=== PATIENT | female | born 1970 | race Asian ===

== ENCOUNTER 2019-01-06 12:46 | Outpatient (CLI) | payer OTHER | END 2019-01-06 19:03 | disposition home or self-care (01) | LOC: RAD 12:46 | DX: M54.5 Low back pain (principal) ==

== ENCOUNTER 2019-01-21 15:49 | Outpatient (CLI) | payer OTHER | END 2019-01-21 21:27 | disposition home or self-care (01) | LOC: RAD 15:49 | DX: M06.4 Inflammatory polyarthropathy (principal); M47.816 Spondylosis without myelopathy or radiculopathy, lumbar region ==

== ENCOUNTER 2019-02-17 09:33 | Outpatient (CLI) | payer OTHER | END 2019-02-17 20:18 | disposition home or self-care (01) | LOC: RAD 09:33 | DX: G47.8 Other sleep disorders (principal); M47.816 Spondylosis without myelopathy or radiculopathy, lumbar region; M79.7 Fibromyalgia; R53.83 Other fatigue ==

== ENCOUNTER 2019-12-16 12:01 | Outpatient (CLI) | payer OTHER | END 2019-12-16 19:08 | disposition home or self-care (01) | LOC: RAD 12:01 | DX: M47.816 Spondylosis without myelopathy or radiculopathy, lumbar region (principal); M54.5 Low back pain; M79.7 Fibromyalgia; R76.0 Raised antibody titer; Z68.35 Body mass index [BMI] 35.0-35.9, adult ==

== ENCOUNTER 2021-11-01 11:24 | Outpatient (CLI) | payer BC | END 2021-11-01 20:01 | disposition home or self-care (01) | LOC: RAD 11:24 | PROVIDERS: ATTEND Nurse Practitioner Family | DX: M06.4 Inflammatory polyarthropathy (principal); M47.816 Spondylosis without myelopathy or radiculopathy, lumbar region; M54.2 Cervicalgia; M54.6 Pain in thoracic spine ==